=== PATIENT | male | born 1990 | race Caucasian/White ===

== ENCOUNTER 2022-02-26 21:51 | Emergency (ER) | payer MEDICAID, OTHER ==
[~2022-02-26] VITALS: Ht 165.1 cm; Wt 81.0 kg
[~2022-02-26 21:51] MED LIST: NOCURR
[2022-02-26 22:11] VITALS: BP 143/86
[2022-02-26] MEDS ORDERED: KETOROLAC TROMETHAMINE 30 MG/ML VIAL IM ONE (22:45)
[2022-02-26] MEDS ORDERED: CYCL-448 PO (22:49)
== END 2022-02-26 23:07 | disposition home or self-care (01) ==
LOC: EMS 21:59
DX: M46.1 Sacroiliitis, not elsewhere classified (principal)
CPT/HCPCS: 96372; 99283; J1885